=== PATIENT | female | born 1970 | race Caucasian/White ===

== ENCOUNTER 2021-08-18 06:47 | Day surgery (SDC) | payer MEDICAID, SELFPAY ==
[~2021-08-18] VITALS: Ht 152.4 cm; Wt 95.3 kg
[2021-08-18] MEDS ORDERED: fentaNYL citrate 0.05 MG/ML VIAL ONE (08:50)
[2021-08-18] MEDS ORDERED: diphenhydrAMINE 50 MG/ML VIAL ONE (08:50)
[2021-08-18] MEDS ORDERED: SIMETHICONE 40 MG/0.6 ML ONE (08:51)
[2021-08-18] MEDS ORDERED: MIDAZOLAM 5 MG/5 ML VIAL ONE (08:51)
[2021-08-18] MEDS ORDERED: LIDOCAINE 2% 100 MG/5 ML UJET TP ONE (08:51)
[2021-08-18] MEDS: fentaNYL citrate 0.05 MG/ML VIAL IVP ONE (08:58)
[2021-08-18] MEDS: LIDOCAINE 2% 100 MG/5 ML UJET TP ONE (08:59)
[2021-08-18] MEDS: MIDAZOLAM 2 MG/2 ML VIAL IVP ONE (08:59)
== END 2021-08-18 10:05 | disposition home or self-care (01) ==
LOC: MOR 06:47 → MMU 06:48 → MOR 10:05
PROVIDERS: ATTEND Internal Medicine Gastroenterology
DX: Z12.11 Encounter for screening for malignant neoplasm of colon (principal); K63.5 Polyp of colon; Z80.0 Family history of malignant neoplasm of digestive organs; Z79.899 Other long term (current) drug therapy; Z20.822 Contact with and (suspected) exposure to COVID-19
CPT/HCPCS: 45385; 81025; 87426; J2250; J3010; 88305; J1200